=== PATIENT | female | born 1970 | race Caucasian/White ===

== ENCOUNTER 2020-05-31 16:03 | Emergency (ER) | payer OTHER ==
[~2020-05-31] VITALS: Ht 172.7 cm; Wt 88.5 kg
[2020-05-31] MEDS ORDERED: LIDO:MAALOX 1:1 20 ML SINGLE DOSE. PO ONE (16:30)
--- NOTE | 2020-05-31 16:35 | PHYS DOC ---
Past History Past Medical History: Migraines (ERICA GARCIA APRN) Past Surgical History: Tonsillectomy (ERICA GARCIA APRN) Alcohol Use: None (ERICA GARCIA APRN) Adult General Chief Complaint Chief Complaint: Palpitations HPI HPI Patient is a 50-year-old female patient who presents with palpitations. Patient reports that she had been in her kitchen sitting down and had been cutting up some jalapenos when she noticed her heart rate was increasing on her apple watch. States she had some palpitations for a little while, 10-15 minutes, with heart rate between 110-120 at that time during which she didn't quite feel like herself. Reports she is not having any pain, however the palpitations worried her. Denies any dyspnea, denies any nausea, denies any vomiting. Does report some indigestion in her chest, which she was concerned about, however she believes it may be related to what she had eaten earlier today, reports she had eaten some eggs and toast for lunch. Reports she has previously had episodes similar to this when she was cutting spicy foods when she has had some reflux, also reports she had some burning in her hands at the time which has since resolved. Had taken reflux medications in the past while still living in [facility]. Denies any dizziness. Denies any nausea, vomiting, diarrhea. Does report she has had thyroid labs drawn approximately 1 year ago when she came to the , however does not know what the results were. (ERICA GARCIA APRN) Review of Systems Review of Systems Constitutional: Denies fever or chills [] Eyes: Denies change in visual acuity, redness, or eye pain [] HENT: Denies nasal congestion or sore throat [] Respiratory: Denies cough or shortness of breath [] Cardiovascular: No additional information not addressed in HPI [] GI: Denies abdominal pain, nausea, vomiting, bloody stools or diarrhea [] : Denies dysuria or hematuria [] Musculoskeletal: Denies back pain or joint pain [] Integument: Denies rash or skin lesions [] Neurologic: Denies headache, focal weakness or sensory changes [] Endocrine: Denies polyuria or polydipsia [] All other systems were reviewed and found to be within normal limits, except as documented in this note. (ERICA GARCIA APRN) Allergies Allergies Allergies Coded Allergies Type Severity Reaction Last Updated Verified No Known Drug Allergies 05/31/20 No (ERICA GARCIA APRN) Physical Exam Physical Exam Constitutional: Well developed, well nourished, no acute distress, non-toxic appearance. [] HENT: Normocephalic, atraumatic, bilateral external ears normal, oropharynx m oist, no oral exudates, nose normal. [] Eyes: PERRLA, EOMI, conjunctiva normal, no discharge. [] Neck: Normal range of motion, no tenderness, supple, no stridor. [] Cardiovascular:Heart rate regular rhythm, no murmur [] Lungs & Thorax: Bilateral breath sounds clear to auscultation [] Abdomen: Bowel sounds normal, soft, no tenderness, no masses, no pulsatile masses. [] Skin: Warm, dry, no erythema, no rash. [] Back: No tenderness, no CVA tenderness. [] Extremities: No tenderness, no cyanosis, no clubbing, ROM intact, no edema. [] Neurologic: Alert and oriented X 3, normal motor function, normal sensory function, no focal deficits noted. [] Psychologic: Affect normal, judgement normal, mood normal. [] (ERICA GARCIA APRN) Current Patient Data Vital Signs Vital Signs Date Time Temp Pulse Resp B/P (MAP) Pulse Ox O2 Delivery O2 Flow Rate FiO2 05/31/20 16:08 97.9 69 16 136/78 (97) 100 Room Air (ERICA GARCIA APRN) EKG EKG [] Normal sinus rhythm. No ST changes per Dr Healy@ 1609 (ERICA GARCIA APRN) Radiology/Procedures Radiology/Procedures []REASON: palpitations PROCEDURE: CHEST AP ONLY EXAM: Chest, single view. HISTORY: Palpitations. COMPARISON: None. FINDINGS: A frontal view of the chest is obtained. There is no infiltrate, pleural effusion or pneumothorax. The heart is normal in size. IMPRESSION: No acute pulmonary finding. Electronically signed by: Renetta Sandoval MD (05/31/2020 4:44 PM) [id number] (ERICA GARCIA APRN) Heart Score HEART Score for Chest Pain: HEART Score for Chest Pain Response (Comments) Value History Slighlty/Non-Suspicious 0 ECG Normal 0 Age >45 - < 65 1 Risk Factors No Risk Factors 0 Troponin < Normal Limit 0 Total 1 Risk Factors: Risk Factors: DM, Current or recent (<one month) smoker, HTN, HLP, family history of CAD, obesity. Risk Scores: Risk Factors: DM, Current or recent (<one month) smoker, HTN, HLP, family history of CAD, obesity. (ERICA GARCIA APRN) Course & Med Decision Making Course & Med Decision Making Pertinent Labs and Imaging studies reviewed. (See chart for details) [] Reviewed findings with patient, with noted hypokalemia. Patient reports she is feel much better after the GI cocktail, no longer having any burning in her chest. States she has not had any more palpitations since she has been here. Discussed options for retesting and trending troponin, however some started eileen ral hours ago no discomfort, patient feels she is safe to return home at this time. Discussed diet with patient, discussed importance of following up with primary care months and to evaluate her TSH level which has been drawn today and is still pending. Also consideration to repeat her potassium levels at that time. Patient agreed with this plan with no further questions (ERICA GARCIA APRN) Dragon Disclaimer Dragon Disclaimer This electronic medical record was generated, in whole or in part, using a voice recognition dictation system. (ERICA GARCIA APRN) Departure Departure: Impression: Primary Impression: Intermittent palpitations Additional Impression: Hypokalemia Disposition: 01 DC HOME SELF CARE/HOMELESS Condition: GOOD Referrals: PCP,NO (PCP) Patient Instructions: Hypokalemia, Palpitations, [id number] Additional Instructions: As discussed, follow-up at [facility] with your TSH results to check your thyroid levels to make sure they are not a cause of your palpitations you had today. Continue to eat a healthy diet, and consider having your potassium levels redrawn when you see your provider at [facility] next week. Attending Signature Attending Signature I have reviewed the PA/CLINICAL EDUCATION COORDINATOR's note and plan of care. I was available for consultation as needed during the patient's visit in the emergency department. I agree with the clinical impression, plan, and disposition. (GRACIE HEALY DO) Problem Qualifiers ERICA GARCIA APRN May 31, 2020 16:35 GRACIE HEALY DO May 31, 2020 22:05
--- NOTE | 2020-05-31 16:47 | RAD ---
EXAM: Chest, single view. HISTORY: Palpitations. COMPARISON: None. FINDINGS: A frontal view of the chest is obtained. There is no infiltrate, pleural effusion or pneumothorax. The heart is normal in size. IMPRESSION: No acute pulmonary finding. Electronically signed by: Renetta Sandoval MD (05/31/2020 4:44 PM) [id number]
--- NOTE | 2020-05-31 16:48 | EKG ---
[address] [address] Test Date: 2020-05-31 Test Time: 16:03:44 Pat Name: KRISTAL GOSS Department: Room: Gender: F [employer] Analyst: MARTY : 1970 Requested By: ERICA GARCIA Order Number: [id number] Reading MD: Measurements Intervals [place] Rate: 97 P: 266 ID: [id number] QRS: 36 QRSD: 92 T: 46 QT: 340 QTc: 436 Interpretive Statements SINUS RHYTHM NO SPECIFIC ECG ABNORMALITIES RI6.02 No previous ECG available for comparison
[2020-05-31 16:59] LABS: BASO # 0.1 x10^3/uL (0.0-0.2); BASO % 1 % (0-3); EOS # 0.3 x10^3/uL (0.0-0.7); EOS % 3 % (0-3); HEMATOCRIT 39.8 % (36.0-47.0); HEMOGLOBIN 13.2 g/dL (12.0-15.5); LYMPH # 2.5 x10^3/uL (1.0-4.8); LYMPH % 25 % (24-48); MEAN CORPUSCULAR HEMOGLOBIN 32 pg (25-35); MEAN CORPUSCULAR HGB CONC 33 g/dL (31-37); MEAN CORPUSCULAR VOLUME 96 fL (79-100); MONO # 0.7 x10^3/uL (0.0-1.1); MONO % 7 % (0-9); NEUT # 6.5 x10^3uL (1.8-7.7); NEUT % 65 % (31-73); PLATELET COUNT 364 x10^3/uL (140-400); RED BLOOD COUNT 4.15 x10^6/uL (3.50-5.40); RED CELL DISTRIBUTION WIDTH 12.6 % (11.5-14.5)
[2020-05-31 17:15] LABS: ALBUMIN 4.2 g/dL (3.4-5.0); ALBUMIN/GLOBULIN RATIO 1.1 (1.0-1.7); CALCIUM 9.6 mg/dL (8.5-10.1); CREATININE 1.1 mg/dL (0.6-1.0); GFR 52.8; MAGNESIUM 2.4 mg/dL (1.8-2.4); TOTAL BILIRUBIN 0.3 mg/dL (0.2-1.0); TOTAL PROTEIN 8.2 g/dL (6.4-8.2)
[2020-05-31 17:19] LABS: POTASSIUM 2.8 mmol/L (3.5-5.1)
[2020-05-31] MEDS ORDERED: POTASSIUM CHLORIDE 20 MEQ TABLET.ER. PO ONE (17:30)
[2020-05-31 17:41] VITALS: BP 115/73
== END 2020-05-31 17:52 | disposition home or self-care (01) ==
LOC: ER 16:03
DX: R00.2 Palpitations (principal); E87.6 Hypokalemia; R20.8 Other disturbances of skin sensation; G43.909 Migraine, unspecified, not intractable, without status migrainosus; Z90.89 Acquired absence of other organs
CPT/HCPCS: 36415; 71045; 80053; 83735; 84443; 84484; 85025; 93005; 99285